=== PATIENT | female | born 1990 | race Caucasian/White ===

== ENCOUNTER 2023-05-27 05:59 | Inpatient (IN) | payer BC ==
[2023-05-27] MEDS ORDERED: METHYLERGONOVINE 0.2 MG/ML 1 ML AMP IM PRN (06:23)
[2023-05-27] MEDS ORDERED: OXYTOCIN 10 UNIT/ML 1 ML VIAL IM PRN (06:23)
[2023-05-27] MEDS ORDERED: LIDOCAINE 0.5% (PF) 5 MG/ML (50 ML SDV) SQ PRN (06:23)
[2023-05-27] MEDS ORDERED: TRANEXAMIC 1,000 MG/100ML-NACL 1,000 MG in EMPTY BAG 1 BAG IV PRN (06:23)
[2023-05-27] MEDS ORDERED: CARBOPROST TROMETHAMINE 250 MCG/ML 1 ML AMP IM PRN (06:23)
[2023-05-27] MEDS ORDERED: TERBUTALINE 1 MG/ML VIAL SQ PRN (06:23)
[2023-05-27] MEDS ORDERED: miSOPROStoL 200 MCG TAB PO PRN (06:23)
[2023-05-27] MEDS ORDERED: OXYTOCIN 30 UNITS/500 ML NS 30 UNIT in SALINE 1 500ML.BAG IV SCH ×2 (06:30→14:30)
[2023-05-27] MEDS: LACTATED RINGERS 1,000 ML IV SCH ×2 (07:00→10:00)
[2023-05-27 07:03] LABS: Anisocytosis Slight; Basophils % (A) 1 %; Eosinophils # (A) 0.1 k/uL (0-0.7); Eosinophils % (A) 1 %; HCT 35.2 % (34.0-46.0); HGB 11.9 gm/dL (11.4-16.0); Lymphocytes # (A) 1.7 k/uL (1.0-4.8); Lymphocytes % (A) 22 %; MCHC 33.7 g/dL (31.0-37.0); Monocytes # (A) 0.5 k/uL (0-1.0); Monocytes % (A) 6 %; Neutrophils # (A) 5.3 k/uL (1.3-7.7); Neutrophils % (A) 68 %; Platelet Count 141 k/uL (150-450); RBC 4.25 m/uL (3.80-5.40); WBC 7.7 k/uL (3.8-10.6)
--- NOTE | 2023-05-27 07:52 | P.HPOB ---
History of Present Illness H&P Date: 05/27/23 Chief Complaint: IUP at 39 1/7 weeks This is a 32-year-old 3 para 1011 at 39 and one sevenths weeks that presents to labor and delivery for elective induction of labor. Patient has been receiving routine care which has been complicated by diagnosis of anemia. Patient struggles with anemia and was seen with hematology. Patient in addition has a history of hypothyroidism which has been controlled throughout the . Patient notes good movement denies contractions vaginal bleeding or loss of fluid this morning. On bloodwork this patient is a blood type of B-, rubella status immune, B surface antigen negative, HIV negative, RPR is nonreactive, group beta strep cultures are negative. Review of Systems Constitutional: Denies chills, Denies fatigue, Denies fever Ears, nose, mouth and throat: Denies headache Cardiovascular: Denies leg edema Respiratory: Denies dyspnea Gastrointestinal: Denies constipation, Denies diarrhea, Denies nausea, Denies vomiting Genitourinary: Reports Past Medical History Past Medical History: Thyroid Disorder Additional Past Medical History / Comment(s): hypothyroid, anemia History of Any Multi-Drug Resistant Organisms: None Reported Past Surgical History: No Surgical Hx Reported Past Anesthesia/Blood Transfusion Reactions: No Reported Reaction Past Psychological History: No Psychological Hx Reported Smoking Status: Never smoker Past Alcohol Use History: None Reported Past Drug Use History: None Reported - Past Family History Father Family Medical History: No Reported History Medications and Allergies Home Medications Medication Instructions Recorded Confirmed Type Ferrous Sulfate [Iron] 325 mg PO DAILY 01/10/20 05/27/23 History Levothyroxine Sodium [Synthroid] 100 mcg PO DAILY 01/10/20 05/27/23 History Pnv No.95/Ferrous Fum/Folic AC 1 tab PO DAILY 01/10/20 05/27/23 History [ Multivitamin Tablet] Allergies Allergy/AdvReac Type Severity Reaction Status Date / Time No Known Allergies Allergy Verified 05/27/23 06:21 Exam Osteopathic Statement: *. No significant issues noted on an osteopathic structural exam other than those noted in the History and Physical/Consult. Vital Signs Temp Pulse Resp BP Pulse Ox 05/27/23 06:38 97.1 F L 113 H 16 131/78 100 Intake and Output 05/26/23 05/27/23 05/27/23 22:59 06:59 14:59 Other: Weight 75.296 kg Targeted physical exam is performed and state in general is well-nourished well- developed female in no acute distress, breathing is noted to nonlabored, heart has a regular rate and rhythm, abdomen is gravid and appropriate for gestational age, heart tones returned be category 1 and she is gabriel every 3 minutes. On cervical exam she is 3/50/-2 station amniotomy is performed and clear fluid was obtained. Results Result Diagrams: 05/27/23 06:46 Abnormal Lab Results - Last 24 Hours (Table) 05/27/23 Range/Units 06:46 RDW 17.0 H (11.5-15.5) % Plt Count 141 L (150-450) k/uL Assessment and Plan (1) Term Current Visit: Yes Status: Acute Code(s): Z34.90 - ENCNTR FOR SUPRVSN OF NORMAL , UNSP, UNSP TRIMESTER SNOMED Code(s): 71766388 (2) Anemia affecting Current Visit: Yes Status: Acute Code(s): O99.019 - ANEMIA COMPLICATING , UNSPECIFIED TRIMESTER SNOMED Code(s): 46608920 (3) Hypothyroidism Current Visit: Yes Status: Acute Code(s): E03.9 - HYPOTHYROIDISM, UNSPECIFIED SNOMED Code(s): 13854387 Plan: 32-year-old 011 at 39 and one sevenths weeks that presents to labor and delivery for elective induction of labor. Patient is counseled on options for analgesia including nitrous, Stadol, epidural. Patient states she desires epidural. Pitocin induction of labor is begun per hospital protocol. Anticipate spontaneous vaginal delivery later today.
[2023-05-27] MEDS ORDERED: SODIUM CHLORIDE 0.9% 100 ML BAG ONE (09:16)
[2023-05-27] MEDS ORDERED: ROPIVACAINE 5 MG/ML 20 ML AMPULE ONE (09:16)
[2023-05-27] MEDS ORDERED: fentaNYL (PF) 50 MCG/ML 5 ML AMP ONE (09:16)
[2023-05-27] MEDS ORDERED: diphenhydrAMINE 50 MG CAP PO PRN (14:28)
[2023-05-27] MEDS ORDERED: diphenhydrAMINE 50 MG/ML 1 ML VIAL IVP PRN ×2 (14:28)
[2023-05-27] MEDS ORDERED: diphenhydrAMINE 25 MG CAP PO PRN (14:28)
[2023-05-27] MEDS ORDERED: BENZOCAINE/MENTHOL SPRAY 1 GM/SPRAY AEROSOL TOPICAL PRN (14:28)
[2023-05-27] MEDS ORDERED: LANOLIN CREAM 5 GM TUBE TOPICAL PRN (14:28)
[2023-05-27] MEDS ORDERED: HYDROCORTISONE 2.5% RECTAL CREAM 30 GM TUBE RECTAL PRN (14:28)
[2023-05-27] MEDS ORDERED: ZOLPIDEM 5 MG TAB PO PRN (14:28)
[2023-05-27] MEDS ORDERED: ACETAMINOPHEN TAB 325 MG TAB PO PRN (14:28)
[2023-05-27] MEDS ORDERED: SIMETHICONE 80 MG CHEWABLE PO PRN (14:28)
--- NOTE | 2023-05-27 14:37 | P.PROBDLV ---
Vaginal Delivery Note - . Vaginal Delivery Note: Findings: Viable female delivered at 1413, weight of 7 lbs. 10 oz. This is a 32-year-old 3 para 1011 at 39 and one sevenths weeks that presented to labor and delivery for elective induction of labor. Patient was admitted and Pitocin induction of labor was begun per hospital protocol. Patient underwent amniotomy and clear fluid was obtained. Patient progressed through labor eventually becoming uncomfortable and requesting epidural placement epidural was placed without difficulty by the anesthesia department. Patient made good progress to complete dilation and began pushing, with excellent maternal effort patient brought the infant down to presentation. The patient had a normal spontaneous vaginal delivery in occiput anterior presentation. A spontaneous cry was noted at . The infant was handed to the maternal abdomen. After two-minute delay the umbilical cord was doubly clamped and cut. The placenta was delivered spontaneously intact with three-vessel cord being noted. The uterus was noted to be firm and at the u mbilicus. The bladder was then drained for approximately 100 mL of clear yellow urine. On inspection of the patient's vaginal vault a first-degree vaginal mucosal laceration was appreciated and repaired with a [id number] suture of 3-0 Rapide. Estimated blood loss 200 mL Patient and infant tolerated delivery well and are resting comfortably All counts were noted be correct 2 at the end of the delivery.
[2023-05-27] MEDS: IBUPROFEN 600 MG TAB PO SCH ×2 (17:18→23:03)
[2023-05-27] MEDS ORDERED: Rhogam IMMUNE GLOBULIN 1,500 UNIT/1 ML IM ONE (17:47)
[2023-05-28] MEDS: SENNOSIDES-DOCUSATE SODIUM 1 EACH TAB PO SCH ×2 (00:21→09:13)
[2023-05-28] MEDS ORDERED: LEVOTHYROXINE 100 MCG TAB PO SCH (06:30)
[2023-05-28] MEDS: IBUPROFEN 600 MG TAB PO SCH (08:04)
[2023-05-28] MEDS ORDERED: PRENATAL VIT-IRON-FOLIC ACID 1 EACH TABLET PO SCH (09:00)
[2023-05-28] MEDS ORDERED: FERROUS SULFATE 325 MG TAB PO SCH (09:00)
[2023-05-28 09:18] VITALS: RESP 16
--- NOTE | 2023-05-28 10:29 | P.DS ---
Providers Date of admission: 05/27/23 05:59 Expected date of discharge: 05/28/23 Attending physician: Elayne De La Torre Primary care physician: Avinash Diallo - Discharge Diagnosis(es) (1) Anemia affecting Current Visit: Yes Status: Acute (2) Hypothyroidism Current Visit: Yes Status: Acute (3) Term Current Visit: Yes Status: Acute (4) Normal spontaneous vaginal delivery Current Visit: Yes Status: Acute (5) Perineal laceration with delivery, first degree Current Visit: Yes Status: Acute Hospital Course: This is a 32-year-old 3 now para 11/17/2002 woman who is admitted at 39 weeks for elective induction of labor with a favorable cervix. Following a dmission she underwent a Pitocin induction of labor with artificial rupture of membranes. She received an epidural anesthetic and progressed normally throughout the first stage of labor. She reached complete cervical dilation and went on to deliver a liveborn female over a first-degree perineal laceration. 's weight 7 lbs. 10 oz., Apgars 9 at 1 minute and 9 at 5 minutes. The patient's course was entirely unremarkable. By day #1 she was ambulating and voiding without difficulty, her vital signs were stable, her lochia was decreasing and she was both breast and bottle feeding successfully. She was deemed medically stable for discharge home on day #1 Patient Condition at Discharge: Good Plan - Discharge Summary New Discharge Prescriptions: New Ibuprofen [Motrin] 600 mg PO Q6H tab Continue Pnv No.95/Ferrous Fum/Folic AC [ Multivitamin Tablet] 1 tab PO DAILY Ferrous Sulfate [Iron] 325 mg PO DAILY Levothyroxine Sodium [Synthroid] 100 mcg PO DAILY Discharge Medication List Ferrous Sulfate [Iron] 325 mg PO DAILY 01/10/20 [History] Levothyroxine Sodium [Synthroid] 100 mcg PO DAILY 01/10/20 [History] Pnv No.95/Ferrous Fum/Folic AC [ Multivitamin Tablet] 1 tab PO DAILY 01/10/20 [History] Ibuprofen [Motrin] 600 mg PO Q6H tab 05/28/23 [Rx] Follow up Appointment(s)/Referral(s): Elayne De La Torre DO [Doctor of Osteopathic Medicine] - 4 Weeks Activity/Diet/Wound Care/Special Instructions: Follow-up in the office in 6 weeks . Call with any concerning signs or symptoms including heavy vaginal bleeding, severe abdominal pain, fever greater than 101, swelling or redness of the lower extremities, foul vaginal discharge, or signs of depression. Nothing in the vagina for 6 weeks after delivery, specifically no intercourse.
[2023-05-28 15:12] VITALS: BP 122/70; PULSE 85; TEMP 98.4
== END 2023-05-28 15:08 | disposition home or self-care (01) | DRG 807 ==
LOC: 4FBP 05:59
PROVIDERS: ADMIT Obstetrics & Gynecology Obstetrics; ATTEND Obstetrics & Gynecology Obstetrics
PROC: 10E0XZZ Delivery of Products of Conception, External Approach (ICD-10-PCS; principal; 2023-05-27)
PROC: 0HQ9XZZ Repair Perineum Skin, External Approach (ICD-10-PCS; 2023-05-27)
PROC: 10907ZC Drainage of Amniotic Fluid, Therapeutic from Products of Conception, Via Natural or Artificial Opening (ICD-10-PCS; 2023-05-27)
PROC: 3E033VJ Introduction of Other Hormone into Peripheral Vein, Percutaneous Approach (ICD-10-PCS; 2023-05-27)
DX: O99.284 Endocrine, nutritional and metabolic diseases complicating childbirth (principal); Z37.0 Single live birth; O70.0 First degree perineal laceration during delivery; E03.9 Hypothyroidism, unspecified; D64.9 Anemia, unspecified; O99.02 Anemia complicating childbirth; Z3A.39 39 weeks gestation of pregnancy; Z79.890 Hormone replacement therapy
CPT/HCPCS: 85025; 85461; 86850; 86870; 86880; 86900; 86901